=== PATIENT | male | born 1975 ===

== ENCOUNTER 2023-04-19 17:38 | Emergency (ER) | payer SELFPAY ==
[2023-04-19] VITALS (15 sets, daily range): BP systolic 99–135; BP diastolic 59–105; PULSE 78–111; RESP 17–23; TEMP 36.6–36.7; O2SAT 93–99
--- NOTE | ~2023-04-19 | XR_ITS ---
EXAMINATION: XR chest 1V portable Exam Date/Time: 04/19/2023 18:00 CDT HISTORY: RT lower Chest pain Comparison: 04/19/2023. RESULT: Lines, tubes, and devices: None. Lungs and pleura: Clear. Cardiomediastinal silhouette: Unremarkable. Other: No acute osseous or upper abdominal finding. IMPRESSION: No acute cardiopulmonary process. Reviewed, dictated and finalized at location K.
--- NOTE | 2023-04-19 17:51 | ECG_ITS ---
Measurements Intervals [place] Rate: 102 P: 42 MS: 151 QRS: -52 QRSD: 109 T: 11 QT: 326 QTc: 425 Interpretive Statements SINUS TACHYCARDIA LEFT ANTERIOR FASCICULAR BLOCK [QRS AXIS <= -45, QR IN I, RS IN II] ABNORMAL ECG NO PREVIOUS ECG AVAILABLE FOR COMPARISON Electronically Signed On 04-21-2023 13:45:40 CDT by Luis Ramires M.D.
[2023-04-19] MEDS: SODIUM CHLORIDE 0.9% IV 1,000 ML 999 ML IV CONT (18:22)
[2023-04-19] MEDS: chlordiazePOXIDE (*CRX) 5 MG CAPSULE 10 MG PO (18:23)
[2023-04-19 19:05] LABS: Basophils Absolute Auto 0.04 K/mm3 (0.00-0.10); Basophils Percent Auto 0.5 % (0.0-1.0); Eosinophils Absolute Auto 0.16 K/mm3 (0.02-0.50); Eosinophils Percent Auto 1.8 % (1.0-6.0); Hematocrit 44.1 % (40.0-54.0); Hemoglobin 15.7 g/dL (14.0-18.0); Immature Granulocyte Absolute 0.02 K/mm3 (0.00-0.00); Immature Granulocyte Percent A 0.2 % (0.0-0.0); Lymphocytes Percent Auto 29.9 % (18.0-42.0); Mean Corpuscular HGB Conc 35.6 g/dL (32.0-36.0); Mean Corpuscular Hemoglobin 32.6 pg (27.0-31.0); Mean Corpuscular Volume 91.7 fL (78.0-102.0); Mean Platelet Volume 9.8 fl (8.7-11.0); Monocytes Absolute Auto 0.71 K/mm3 (0.10-0.90); Monocytes Percent Auto 8.2 % (2.0-11.0); Neutrophils Absolute Auto 5.2 K/mm3 (1.7-7.2); Neutrophils Percent Auto 59.4 % (50.0-70.0); Platelet Count Result 298 K/mm3 (150-420); Red Blood Count 4.81 M/mm3 (4.70-6.10); Red Cell Distribution Width 11.9 % (11.6-14.4); White Blood Count 8.7 K/mm3 (4.8-10.8)
[2023-04-19 19:16] LABS: D Dimer 0.19 mg/L (0.19-0.50); INR 0.9; Partial Thromboplastin Time 27.2 SEC (23.90-30.70); Prothrombin Time 10.3 Seconds (9.50-12.10)
--- NOTE | 2023-04-19 19:25 | PC.NURSE ---
Pt resting, VSS, family at bedside, Pt reports feeling better.
[2023-04-19 19:28] LABS: Alanine Aminotransferase 47 U/L (16-63); Albumin Level 4.4 g/dL (3.4-5.0); Alkaline Phosphatase 77 U/L (46-116); Anion Gap 16 mmol/L (8-16); Aspartate Amino Transferase 34 U/L (15-37); Bilirubin,Total 0.5 mg/dL (0.00-1.00); Blood Urea Nitrogen 10 mg/dL (7-18); Calcium 8.8 mg/dL (8.5-10.1); Carbon Dioxide 22 mmol/L (21-32); Chloride 97 mmol/L (98-108); Creatine Kinase 326 U/L (39-308); Estimated Glomerular Filt Rate > 60; Glucose 106 mg/dL (70-99); Lipase 40 U/L (16-77); NT Pro B Type Natriuretic Pept 18 pg/mL (0-125); Osmolality Calculated 279 mOsm/kg (285-295); Potassium 3.5 mmol/L (3.5-5.1); Sodium 135 mmol/L (136-145); Total Protein 8.2 g/dL (6.4-8.2); Troponin I 21.2 ng/L (0.00-60.4)
--- NOTE | 2023-04-19 19:47 | ED.CHESTPAIN ---
HPI - Chest Pain General Chief Complaint: Chest Pain Stated Complaint: heart racing; abdominal pain Time Seen by Provider: 04/19/23 17:51 Source: patient Mode of arrival: ambulatory Limitations: no limitations History of Present Illness HPI narrative: this is a 48-year-old male that presents with some co-worker he is a Italian speaker and his co-worker helped translate he is a chronic alcohol abuser and has been having chest discomfort with no nausea vomiting no history of heart disease no abdominal pain no shortness of breath no fever chills. The pain is reproducible in the left chest with palpation. MD complaint: chest discomfort Onset (ago): day(s) Timing of current episode: episodic Prior episodes: Yes Onset: during rest Pain location: left chest Pain radiation: none Severity: mild Quality: aching Related Data Allergies Allergy/AdvReac Type Severity Reaction Status Date / Time No Known Allergies Allergy Verified 04/19/23 18:16 Review of Systems Review of Systems: All systems reviewed & are unremarkable except as noted in HPI and below PMFSH Past Medical History Medical History Alcohol abuse Exam Const: General: healthy appearing Nutritional Appearance: well nourished Orientation/consciousness: patient oriented x3 Limitations: no limitations HENMT: Head: normal to inspection Eyes: Conjunctivae: conjunctivae normal Pupils: Equal, round and reactive pupils present EOM: EOMs intact bilaterally Neck: Neck: normal visual inspection Chest: Chest palpation & inspection: normal inspection of the chest Resp: Effort & Inspection: normal respiratory effort Auscultation: clear to auscultation bilaterally Cardio: Rate: regular rate Rhythm: regular rhythm Other: reproducible chest pain left chest area the palpation GI: GI Palp: Yes Soft to palpation : General: Yes bladder normal to palpation Back/Spine/Pelvis: Back: no CVA tenderness Skin: General skin exam: normal color Rashes: no rashes Wounds: no wounds Neuro: General: patient oriented x3 and moves all extremities Cranial nerves: Yes Nystagmus not present Speech: normal speech Extrem: General: normal to inspection Psych: Mental Status: mental status grossly normal Affect: normal affect Course Course Emergency Course: patient received IV fluids and Librium, the patient after reassessment states that he is feeling much better, his labs were unremarkable except for CK was mildly elevated. Vital Signs Vital signs: Vital Signs Temperature 36.7 C 04/19/23 17:38 Pulse Rate 97 04/19/23 17:38 Respiratory Rate 17 04/19/23 17:38 Blood Pressure 135/97 H 04/19/23 17:38 Pulse Oximetry 95 04/19/23 17:38 Oxygen Delivery Room Air 04/19/23 17:38 Temperature 36.7 C 04/19/23 17:38 Pulse Rate 97 04/19/23 17:38 Respiratory Rate 17 04/19/23 17:38 Blood Pressure 135/97 H 04/19/23 17:38 Pulse Oximetry 95 04/19/23 17:59 Oxygen Delivery Room Air 04/19/23 17:59 MDM - Chest Pain Lab Data 04/19/23 18:20 04/19/23 18:20 Labs: Lab Results 04/19/23 Range/Units 18:20 WBC 8.7 (4.8-10.8) K/mm3 RBC 4.81 (4.70-6.10) M/mm3 Hgb 15.7 (14.0-18.0) g/dL Hct 44.1 (40.0-54.0) % MCV 91.7 (78.0-102.0) fL MCH 32.6 H (27.0-31.0) pg MCHC 35.6 (32.0-36.0) g/dL RDW 11.9 (11.6-14.4) % Plt Count 298 (150-420) K/mm3 MPV 9.8 (8.7-11.0) fl Immature Gran % (Auto) 0.2 H (0.0-0.0) % Neut % (Auto) 59.4 (50.0-70.0) % Lymph % (Auto) 29.9 (18.0-42.0) % [place] % (Auto) 8.2 (2.0-11.0) % Eos % (Auto) 1.8 (1.0-6.0) % Baso % (Auto) 0.5 (0.0-1.0) % Lymph # (Auto) 2.60 (1.10-4.50) K/mm3 [place] # (Auto) 0.71 (0.10-0.90) K/mm3 Eos # (Auto) 0.16 (0.02-0.50) K/mm3 Baso # (Auto) 0.04 (0.00-0.10) K/mm3 Abs Immat Gran (auto) 0.02 H (0.00-0.00) K/mm3 Absolute Neuts (auto) 5.2 (1.7-7.2) K/mm3 Absolute Nucleated RBC 0.00 (0.00-0.00) K/mm3
== END 2023-04-19 20:23 | disposition home or self-care (01) ==
PROVIDERS: Emergency Provider Emergency Medicine
DX: R07.89 Other chest pain (principal); F10.10 Alcohol abuse, uncomplicated; M62.82 Rhabdomyolysis
CPT/HCPCS: 36415; 71045; 80053; 82550; 83690; 83880; 84484; 85025; 85380; 85610; 85730; 93005; 96360; 99284; A9270; J7030